=== PATIENT | female | born 1955 | race Caucasian/White ===

== ENCOUNTER 2018-07-17 11:02 | Observation (INO) | payer BC ==
[~2018-07-17] VITALS: Ht 165.1 cm; Wt 89.7 kg
[~2018-07-17 11:02] MED LIST: AMBIEN CR12.5 MG PO; BACTRIM,SEPT1 TABLET PO; BENADRYL25 MG PO; CRESTOR10 MG; DOXYCYCLINE HY100 MG PO; EPINEPHRIN0.15 MG/0. IM; EXFORGE HCT 101 EAC1 PO; HYDROCODON-ACE1 EACH; IBUPROFEN800 MG; INDAPAMIDE1.25 MG; KEFLEX500 MG PO; METAXALONE800 MG PO; NORVASC10 MG PO; PREDNISONE20 M1 PO; PREDNISONE20 MG PO; PROZAC10 MG PO
[2018-07-17 11:59] LABS: HEMATOCRIT 41.9 % (36.0-46.0); HEMOGLOBIN 14.7 G/DL (11.9-15.5); MCH 33.3 PG (29.0-34.0); MCHC 35.1 G/DL (30.0-36.0); MCV 94.8 FL (83-99); PLATELET COUNT 291 K/uL (156-360); RBC DIS.WIDTH-CV 11.9 % (11.8-14.6); RBC DIS.WIDTH-SD 41.3 % (39-53); RED BLOOD COUNT 4.42 M/uL (3.80-5.20); WHITE BLOOD COUNT 8.6 K/uL (4.1-10.2)
[2018-07-17 12:11] LABS: CHLORIDE 105 mEq/L (99-109); POTASSIUM 3.8 mEq/L (3.7-5.4); SODIUM 139 mEq/L (136-147)
[2018-07-17 12:13] LABS: GLUCOSE 139 mg/dL (70-99)
[2018-07-17 12:17] LABS: CREATININE 0.7 mg/dL (0.6-1.3); GFR ESTIMATE (CALCULATED) > 59 mL/min/; UREA NITROGEN (BUN) 16 mg/dL (9-23)
[2018-07-17 12:21] LABS: TROP-I INTERPRETATION NEGATIVE; TROPONIN-I < 0.01 ng/mL (0.0-0.30)
[2018-07-17] MEDS ORDERED: COZAAR100 MG PO (13:28)
[2018-07-17] MEDS ORDERED: PROZAC40 MG PO (13:28)
[2018-07-17 19:25] VITALS: BP 184/86
[2018-07-17 19:40] LABS: TROP-I INTERPRETATION NEGATIVE; TROPONIN-I < 0.01 ng/mL (0.0-0.30)
[2018-07-17 20:45] VITALS: BP 198/79
[2018-07-17 22:25] VITALS: BP 169/72
[2018-07-18 00:14] LABS: TROP-I INTERPRETATION NEGATIVE; TROPONIN-I < 0.01 ng/mL (0.0-0.30)
[2018-07-18 00:29] VITALS: BP 143/68
[2018-07-18 04:32] VITALS: BP 183/79
[2018-07-18 05:09] LABS: BENZODIAZEPINES, URINE SCREEN Negative (200 ng/mL)
[2018-07-18 05:50] VITALS: BP 194/84
[2018-07-18 07:22] LABS: HEMATOCRIT 43.4 % (36.0-46.0); MCH 32.9 PG (29.0-34.0); MCHC 34.6 G/DL (30.0-36.0); MCV 95.2 FL (83-99); PLATELET COUNT 280 K/uL (156-360); RBC DIS.WIDTH-SD 41.5 % (39-53); RED BLOOD COUNT 4.56 M/uL (3.80-5.20); WHITE BLOOD COUNT 7.7 K/uL (4.1-10.2)
[2018-07-18 07:45] LABS: CHLORIDE 103 MEQ/L (99-109); CREATININE 0.6 MG/DL (0.6-1.3); GFR ESTIMATE (CALCULATED) > 59 mL/min/; GLUCOSE 131 mg/dL (70-99); POTASSIUM 4.2 MEQ/L (3.7-5.4); SODIUM 137 MEQ/L (136-147); UREA NITROGEN (BUN) 13 mg/dL (9-23)
[2018-07-18 07:53] LABS: TROP-I INTERPRETATION NEGATIVE; TROPONIN-I < 0.01 ng/mL (0.0-0.30)
[2018-07-18 08:23] VITALS: BP 182/84
[2018-07-18] MEDS ORDERED: ASPIR-LOW81 MG PO (08:38)
[2018-07-18] MEDS ORDERED: NORVASC5 MG PO (08:39)
[2018-07-18 11:36] VITALS: BP 161/85
== END 2018-07-18 12:20 | disposition home or self-care (01) ==
LOC: EME 11:02 → EDOF 14:50 → ENRESERV 14:57 → 4SOUTH 16:10
PROVIDERS: Internal Medicine
DX: R07.89 Other chest pain (principal); I10 Essential (primary) hypertension; E78.5 Hyperlipidemia, unspecified; F32.9 Major depressive disorder, single episode, unspecified; G47.00 Insomnia, unspecified; F12.90 Cannabis use, unspecified, uncomplicated; Z82.3 Family history of stroke; Z88.2 Allergy status to sulfonamides; Z88.1 Allergy status to other antibiotic agents
CPT/HCPCS: 71046; 80048; 80306 90; 84484; 85027; 93005; 99281; 99285; G0378; J0360; J1650